=== PATIENT | female | born 1985 | race Caucasian/White ===

== ENCOUNTER 2016-10-16 17:20 | Emergency (ER) | payer MEDICAID ==
--- NOTE | 2016-10-16 17:46 | ER NURSING DOCUMENTATION ---
Nurse's Notes [facility] Name:Aida Castillo Age:31 yrs Sex:Female :1985 Arrival Date:10/16/2016 Time:17:20 Bed2 Private MD: Diagnosis:Chipped Tooth, Open Fracture Presentation: 10/16 17:23 Acuity: GRIS 4 lc 17:26 Presenting complaint: Patient states: DENTAL PAIN TO RIGHT LOWER MOLAR, HAS TEMPORARY lc CROWN THAT SHE THINKS IS CRACKED. Transition of care: Home. Notified ED Physician of patient's arrival and CC. 17:26 Method Of Arrival: Private Vehicle lc Triage Assessment: 17:28 General: Appears uncomfortable, Behavior is cooperative, pleasant. Pain: Complains of lc pain in RIGHT LOWER MOLAR Pain At worst was 7 out of 10 on a pain scale. Pain began gradually, 2-3 days ago. EENT: SWELLING TO RIGHT JAW. Reports pain in right jaw. Neuro: Level of Consciousness is awake, alert, Oriented to person, place, time, event. Respiratory: Airway is patent Respiratory effort is even, unlabored. Derm: Skin is pink, warm & dry. Historical: - Allergies: No known drug Allergies; - Home Meds: 1. None - PMHx: None; - PSHx: None; - Tetanus: < 10 years. - Ebola Screening: : Patient denies travel to an Ebola-affected area in the 21 days before illness onset. No symptoms or risks identified at this time. . - Immunization history: Flu Vaccine < 1 year. - Social history: Smoking status: Patient uses tobacco products, current every day smoker. Screenin:29 Infectious Disease Risk None. Abuse screen: Denies threats or abuse. Denies injuries lc from another. Nutritional screening: No deficits noted. Assessment: 17:29 See Triage Assessment done by same RN. lc Vital Signs: 17:24 BP 124 / 76; Pulse 72; Resp 12; Temp 98.6(O); Pulse Ox 94% on R/A; Weight 81.65 kg (R); arc Height 6 ft. 0 in. (182.88 cm) (R); Pain 7/10; 17:45 Pain 5/10; lc 17:24 Body Mass Index 24.41 (81.65 kg, 182.88 cm) arc ED Course: 17:21 Patient arrived in ED. em3 17:23 Triage completed. 17:24 Rc Cody MD is Attending Physician. be 17:30 Valuables Remains with patient Patient has correct armband on for positive lc identification. Bed in low position. Call light in reach. 17:42 Bre Slaughtre, RN is Primary Nurse. Administered Medications: 17:30 Drug: Penicillin VK 1000 mg; Route: PO; 17:44 Follow up: Response: No adverse reaction 17:43 Drug: HYDROcodone-acetaminophen (5mg/325 mg) 1-2 tabs 1 tabs; Route: PO; 17:44 Follow up: Response: Pharmacy closed - take home med pack 17:44 Drug: Penicillin VK 1000 mg; Route: PO; 17:44 Follow up: Response: Pharmacy closed - take home med pack Outcome: 17:29 Discharge ordered by . be 17:45 Discharged to home ambulatory. 17:45 Condition: stable 17:45 Discharge Assessment: Patient awake, alert and oriented x 3. No cognitive and/or functional deficits noted. Patient verbalized understanding of disposition instructions. 17:45 Discharge instructions given to patient, Instructed on discharge instructions, follow up and referral plans. medication usage, DENTAL APPT Demonstrated understanding of instructions, medications, Prescriptions given X 2, PLUS PREPACKS 17:46 Patient left the ED. 10/17 11:16 Discharge F/U Call: Unable to reach: no answer Signatures: Bre Slaughter, ADIEL RN Rc Cody MD MD be Meiklejohn, Eric em3 Chew, Mary, Reg Reg arc Hofsess, Marilu
--- NOTE | 2016-10-16 17:46 | ER PHYSICIAN DOCUMENTATION ---
Physician Documentation [facility] Name:Aida Castillo Age:31 yrs Sex:Female :1985 Arrival Date:10/16/2016 Time:17:20 Bed2 Private MD: Rc Devries Disposition: 10/16/16 17:29 Discharged to Home/Self Care. Impression: Chipped Tooth, Open Fracture. - Condition is Good. - Discharge Instructions: CHIPPED TOOTH - DENTAL TRAUMA. - Prescriptions for PENVK - take 1000 milligram by ORAL route 4 times per day; 40 capsule. Hydrocodone- Acetaminophen 5-325 mg Oral Tablet - take 1 tablet by ORAL route every 6 hours As needed; 20 tablet. - Medical Reconciliation form form. - Follow up: Private Physician; When: Tomorrow; Reason: Recheck today's complaints. - Problem is an ongoing problem. - Symptoms are unchanged. HPI: 10/16 17:43 This 31 yrs old Female presents to ER via Private Vehicle with complaints of be Toothache. 17:43 The patient presents with broken tooth/teeth. The problem is located in the lower right be second molar. Onset: The symptom(s)/episode began/occurred last week. Historical: - Allergies: No known drug Allergies; - Home Meds: 1. None - PMHx: None; - PSHx: None; - Tetanus: < 10 years. - Ebola Screening: : Patient denies travel to an Ebola-affected area in the 21 days before illness onset. No symptoms or risks identified at this time. . - Immunization history: Flu Vaccine < 1 year. - Social history: Smoking status: Patient uses tobacco products, current every day smoker. ROS: 17:43 ENT: Positive for dental pain. be 17:43 All other systems are negative. Exam: 17:43 Constitutional: This is a well developed, well nourished patient who is awake, alert, be and in no acute distress. Head/Face: Normocephalic, atraumatic. 17:43 Neck: Trachea midline, no thyromegaly or masses palpated, and no cervical be lymphadenopathy. Supple, full range of motion without nuchal rigidity, or vertebral point tenderness. No Meningismus. 17:43 ENT: Mouth: Oral mucosa: pink and intact, Dental exam: fractured teeth are noted, specifically the lower right second molar (#31). Vital Signs: 17:24 BP 124 / 76; Pulse 72; Resp 12; Temp 98.6(O); Pulse Ox 94% on R/A; Weight 81.65 kg (R); arc Height 6 ft. 0 in. (182.88 cm) (R); Pain 7/10; 17:45 Pain 5/10; lc 17:24 Body Mass Index 24.41 (81.65 kg, 182.88 cm) arc MDM: 17:27 Patient medically screened. be 17:44 Differential diagnosis: dental caries. Data reviewed: vital signs, nurses notes, and as be a result, I will discharge patient, administer antibiotics PenVK 1000mg po. Dispensed Medications: 17:30 Drug: Penicillin VK 1000 mg; Route: PO; 17:44 Follow up: Response: No adverse reaction 17:43 Drug: HYDROcodone-acetaminophen (5mg/325 mg) 1-2 tabs 1 tabs; Route: PO; 17:44 Follow up: Response: Pharmacy closed - take home med pack 17:44 Drug: Penicillin VK 1000 mg; Route: PO; 17:44 Follow up: Response: Pharmacy closed - take home med pack Signatures: Bre Slaughter RN RN Rc Vo MD MD be
[2016-10-16] MEDS ORDERED: PENICILLIN VK PREPAC 500 MG TABLET PO ONE (17:47)
[2016-10-16] MEDS ORDERED: PENICILLIN V POTASSIUM 250 MG TABLET PO ONE (17:47)
== END 2016-10-16 17:46 | disposition home or self-care (01) ==
LOC: ER 17:20
DX: K03.81 Cracked tooth (principal); K02.9 Dental caries, unspecified; F17.210 Nicotine dependence, cigarettes, uncomplicated
CPT/HCPCS: 99283

== ENCOUNTER 2016-11-02 10:00 | Emergency (ER) | payer MEDICAID ==
--- NOTE | 2016-11-02 10:44 | ER NURSING DOCUMENTATION ---
Nurse's Notes [facility] Name:Aida Castillo Age:31 yrs Sex:Female :1985 Arrival Date:11/02/2016 Time:10:00 Bed2 Private MD: Diagnosis:Abscess Tooth Presentation: 11/02 10:08 Presenting complaint: Patient states: pt has know dental problems and is on a wait list lpr to get them taken care of. this AM pt left lower face swelled. pt has been on pen up until about a week ago. Transition of care: Home. 10:08 Acuity: GRIS 4 lpr 10:08 Method Of Arrival: Private Vehicle lpr Triage Assessment: 10:12 General: Appears uncomfortable, Behavior is cooperative. Pain: Complains of pain in lpr lower right first molar and right jaw Pain currently is 7 out of 10 on a pain scale. Pain began few weeks of dental pain this Am is casi the swelling came back. EENT: Oral mucosa is moist. Poor dentition noted. broken tooth noted. Reports. Historical: - Allergies: No known drug Allergies; - Home Meds: 1. None - PMHx: NONE; Chipped Tooth, Open Fracture (October 16, 2016); - PSHx: NONE; Screenin:14 Abuse screen: Denies threats or abuse. Denies injuries from another. Nutritional lpr screening: No deficits noted. Vital Signs: 10:13 BP 114 / 74; Pulse 99; Temp 98.2; Pulse Ox 95% on R/A; Pain 7/10; lpr ED Course: 10:02 Patient arrived in ED. ama 10:05 Remy Bartlett MD is Attending Physician. matthew 10:12 Triage completed. lpr 10:14 Valuables Remains with patient Patient has correct armband on for positive lpr identification. Bed in low position. Administered Medications: 10:42 Drug: Clindamycin 300 mg; Route: PO; lpr 10:43 Follow up: Response: Medication administered at discharge. lpr Outcome: 10:29 Discharge ordered by . jm 10:42 Discharged to home ambulatory. lpr 10:42 Condition: improved 10:42 Discharge instructions given to patient, Instructed on discharge instructions, follow up and referral plans. medication usage, Prescriptions given X 1. 10:43 Patient left the ED. lpr 11/03 15:05 Discharge F/U Call: Unable to reach: left voicemail: tg Signatures: Tom Doshi RN RN tg Remy Bartlett MD MD jm Roberts, Leslie, RN RN lpr Suhail Calvillo, Reg Reg ama
--- NOTE | 2016-11-02 10:44 | ER PHYSICIAN DOCUMENTATION ---
Physician Documentation [facility] Name:Aida Castillo Age:31 yrs Sex:Female :1985 Arrival Date:11/02/2016 Time:10:00 Bed2 Private MD: Remy Garcia Disposition: 11/02/16 10:29 Discharged to Home/Self Care. Impression: Abscess Tooth. - Condition is Good. - Discharge Instructions: DENTAL ABSCESS. - Prescriptions for Clindamycin HCl 300 mg Oral - take 1 capsule by ORAL route every 8 hours for 10 days; 30 capsule. - Medical Reconciliation form form. - Follow up: Private Physician; When: As needed; Reason: Continuance of care. - Problem is new. - Symptoms have improved. HPI: 11/02 10:32 This 31 yrs old Female presents to ER via Private Vehicle with complaints of jm Toothache. 10:32 The patient presents with pain, swelling. The problem is located in the lower right jm first molar and right jaw. Onset: The symptom(s)/episode began/occurred 2 week(s) ago, and became worse today. Pt can see a dentist today for it. . Historical: - Allergies: No known drug Allergies; - Home Meds: 1. None - PMHx: NONE; Chipped Tooth, Open Fracture (October 16, 2016); - PSHx: NONE; ROS: 10:33 Constitutional: Negative for fever. jm 10:33 ENT: Positive for dental pain. 10:33 Respiratory: Negative for cough, shortness of breath. Exam: 10:33 ENT: Mouth: is normal, Dental exam: abscess, that is mild, specifically in the lower jm right first molar (#30), fractured teeth are noted, specifically the lower right first molar (#30). 10:33 Neck: Thyroid: appears normal, ROM/movement: is normal. 10:33 Cardiovascular: Rate: normal, Rhythm: irregular. Vital Signs: 10:13 BP 114 / 74; Pulse 99; Temp 98.2; Pulse Ox 95% on R/A; Pain 7/10; lpr Procedures: 10:34 Nerve block: (dental) of right inferior alveolar nerve, Medication: Marcaine 0.5%, jm Amount: 10 mls were injected, Effect: the patient's symptoms are unchanged, Set up for procedure. Performed by Remy Bartlett MD Patient tolerated well. MDM: 10:05 Patient medically screened. jm 10:34 Differential diagnosis: dental caries, dental abscess. Data reviewed: vital signs, jm nurses notes, and as a result, I will discharge patient. Counseling: I had a detailed discussion with the patient and/or guardian regarding: the historical points, exam findings, and any diagnostic results supporting the discharge/admit diagnosis, the need for outpatient follow up, a dentist. ED course: Pt better after shot. She will see Dr. Santillan today at 3pm. Dispensed Medications: 10:42 Drug: Clindamycin 300 mg; Route: PO; lpr 10:43 Follow up: Response: Medication administered at discharge. lpr Signatures: Remy Bartlett MD MD jm Roberts, Leslie, RN RN lpr
[2016-11-02] MEDS ORDERED: CLINDAMYCIN HCL 150 MG CAPSULE PO ONE (10:48)
== END 2016-11-02 10:44 | disposition home or self-care (01) ==
LOC: ER 10:00
DX: K04.7 Periapical abscess without sinus (principal); K08.89 Other specified disorders of teeth and supporting structures; R22.0 Localized swelling, mass and lump, head
CPT/HCPCS: 64400; 99283